=== PATIENT | female | born 1955 | race Caucasian/White ===

== ENCOUNTER 2018-03-16 20:16 | Inpatient (IN) | payer OTHER ==
[~2018-03-16] VITALS: Ht 167.6 cm; Wt 66.4 kg
--- NOTE | ~2018-03-16 | D ---
[facility] [place] [address] DISCHARGE SUMMARY Name: RAUL MCCRACKEN Room #: 455-P [facility] IN M.R.#: [id number] Admission: 03/16/18 Attend Phys: Argenis Coronel Discharge: 03/18/18 Date of : 59 Report #: [id number] THIS REPORT FOR: //name// CC: Jaquan Mayberry DATE OF SERVICE: 03/18/2018 FINAL DIAGNOSES: 1. Right proximal humerus fracture. 2. Right distal femur fracture. 3. Right proximal tibia-fibula fracture. 4. End-stage renal disease. 5. Acute blood loss anemia. 6. Hypertension. 7. Morbid obesity. 8. Anemia of chronic kidney disease. 9. Cerebrovascular disease with late effect aphasia. 10. Chronic right hemiplegia. 11. Atrial fibrillation. 12. History of breast cancer. HOSPITAL COURSE: The patient was admitted from her [facility] facility through the ER after she sustained an injury from accidentally being dropped as her was using the Whitley lift to try to transfer her out of bed. She had various fractures as documented through x-ray including the right humerus, right distal femur and right proximal tib-fib. Orthopedics assessed her and treated these conservatively with a right shoulder immobilizer and a hinged right knee brace locked in flexion. She has a longstanding contracture of the right leg related to prior stroke and therefore a straight leg knee immobilizer was not an option. There is no surgical plan. She received hemodialysis and blood transfusion of 2 units. Her hemoglobin came up to about 6.8. Plavix and aspirin were held and then eventually aspirin will be continued. She had no other interval complications. On the day of discharge, she was asleep in bed, in no distress. She had stable vital signs. Blood sugars were in the 100s to low 200s. Lungs were clear. Heart was regular. Abdomen soft, normoactive bowel sounds. Extremities: 1+ edema. There is significant ecchymoses in the right upper arm and flex contracture of the right hip and knee. DISPOSITION: She will be transferred to [facility] facility under the care of Dr. Justus Mayberry. She will diet of diabetic and renal. Bed rest with right shoulder immobilizer and right hinged knee brace. Follow up x-rays in 2-[address] [address] DISCHARGE SUMMARY Name: RAUL MCCRACKEN GELA Room #: 455-P [facility] IN M.R.#: [id number] Admission: 03/16/18 Attend Phys: Argenis Coronel Discharge: 03/18/18 Date of : 59 Report #: [id number] weeks. She will need bedside hemodialysis with followup lab. I have signed her transfer medication list. <ELECTRONICALLY SIGNED> By: Urban Go MD 03/18/18 1150 [id number] [id number] Urban Go MD /fabio
--- NOTE | ~2018-03-16 | EKG ---
[address] [place] [address] ELECTROCARDIOGRAM REPORT Name: RAUL MCCRACKEN Room #: 455-P ADM IN M.R.#: [id number] Admission: 03/16/18 Attend Phys: Argenis Coronel Discharge: Date of : 59 Report #: [id number] THIS REPORT FOR: //name// [facility] ED Test Date: 2018-03-16 Test Time: 20:44:58 Pat Name: RAUL MCCRACKEN Department: Room: Gender: F [employer] Analyst: GABE : 1955 Requested By: Jovan Carrasquillo Order Number: [id number] MD: Chandana Tello Measurements Intervals [place] Rate: 83 P: WI: QRS: -44 QRSD: 149 T: 15 QT: 391 QTc: 460 Interpretive Statements Atrial fibrillation RBBB and LAFB Compared to ECG 05/22/2016 07:32:20 No significant change was found Electronically Signed On 03-17-2018 8:11:16 CDT by Chandana Tello [email or web address] <ELECTRONICALLY SIGNED> By: Chandana Tello MD, [facility] 03/17/18 0811 43 Chandana Tello MD, [facility] /EPI
--- NOTE | ~2018-03-16 | H ---
[facility] [place] [address] HISTORY AND PHYSICAL Name: RAUL MCCRACKEN Room #: 455-P ADM IN M.R.#: [id number] Admission: 03/16/18 Attend Phys: Argenis Coronel Discharge: Date of : 59 Report #: [id number] THIS REPORT FOR: //name// CC: Jaquan Mayberry DATE OF SERVICE: 03/17/2018 CHIEF COMPLAINT: Right arm pain. HISTORY OF PRESENT ILLNESS: The patient is a 63-year-old female who was admitted through the Emergency Room from [facility] facility with pain in the right arm and leg. The report was that her was trying to get her up, using a Whitley lift when she fell to the ground on to her right side. X-rays were obtained, which reports came back revealing fractures. She was sent to the Emergency Room and repeat x-rays have revealed an acute fracture of the right humeral neck and acute fracture of the right proximal tibia and fibula. She has a history of right hemiparesis due to a prior stroke along with end-stage renal disease for which she attends outpatient hemodialysis. PAST MEDICAL HISTORY: Cerebrovascular accident with chronic right hemiplegia. She also has aphasia, morbid obesity, hypertension, diabetes type 2. She has had a previous gastric bypass. Report of chronic atrial fibrillation with an ablation and cardioversion in 2000, history of pneumonia, end-stage renal disease and on dialysis, anemia of chronic disease. PAST SURGICAL HISTORY: As above. FAMILY HISTORY: Noncontributory. SOCIAL HISTORY: She has been living at [facility] facility for a number of years since her stroke in 2010. No known chronic alcohol or tobacco use. ALLERGIES: PENICILLIN, SULFA and CONTRAST DYE. MEDICATIONS: Tylenol, Levemir, clonidine, nifedipine, Renvela, Sensipar, Procrit, hydrocodone, aspirin, Plavix, Pepcid, eye drops, Keppra. REVIEW OF SYSTEMS: She is unable to give review. OBJECTIVE: VITAL SIGNS: Temperature 36.3, pulse 81, respirations 20, blood pressure 182/57, O2 sat 96% on room air. GENERAL: She was awake and alert, lying in bed, in no distress. HEAD AND NECK: Unremarkable. LUNGS: Clear. HEART: Regular. [address] [address] HISTORY AND PHYSICAL Name: RAUL MCCRACKEN Room #: [address] [place] [address] IN M.R.#: [id number] Admission: 03/16/18 Attend Phys: Argenis Coronel Discharge: Date of : 59 Report #: [id number] ABDOMEN: Obese, soft, normoactive bowel sounds. EXTREMITIES: There is significant ecchymoses in the right upper arm. Some bruising around the right knee. NEUROLOGIC: She is able to somewhat nod yes or no to questions, but no speech. She is alert. LABORATORY DATA REVIEW: Calcium was noted to be 11.7, sodium of 126. Hemoglobin 5.5. IMAGING: X-rays revealed impacted fracture of the right distal femur, proximal tibia and proximal fibula on the right; also fracture of the right proximal humerus. ASSESSMENT: 1. Multiple fractures. 2. Acute blood loss [id number] of chronic disease. 3. End-stage renal disease. 4. Cerebrovascular disease. 5. Late effect stroke with chronic right hemiparesis. 6. Hypertension. 7. Diabetes type 2. 8. Morbid obesity. 9. Hypercalcemia. PLAN: She is admitted for medical stabilization and initial transfusion. I suspect there may be some bleeding into the fracture site, especially the arm given the amount of ecchymoses. The Orthopedic Services assessed her and it appears that conservative treatment with hinged brace is to the knee and sling or immobilizer to the right arm. Dr. Rey has assessed her too for dialysis and transfusion needs. Once stabilized medically, then she will return to the [facility] facility for bedside hemodialysis as in her current condition, she could not attend outpatient dialysis. <ELECTRONICALLY SIGNED> By: Urban Go MD 03/17/18 1122 0950 1039 Urban Go MD /nt
--- NOTE | ~2018-03-16 | HC ---
[facility] [place] [address] CONSULTATION Name: RAUL MCCRACKEN Room #: 455-P [facility] IN M.R.#: [id number] Admission: 03/16/18 Attend Phys: Argenis Coronel Discharge: 03/18/18 Date of : 59 Report #: [id number] THIS REPORT FOR: //name// CC: Jaquan Mayberry DATE OF SERVICE: 03/17/2018 REASON FOR PRESENTATION: Post-fall. REASON FOR CONSULTATION: End-stage renal disease. HISTORY OF PRESENT ILLNESS: The patient is not able to provide me with the details of the history. She has a long-term aphasia secondary to a stroke. She is a dialysis patient who was brought from her facility during a transfer into bed with a bed lift assisted by her . She fell on the right side. This was complicated by right humeral neck fracture along with right proximal tibia and fibula fracture. She is known to have end-stage renal disease and maintained on dialysis. She is also known to have diabetes mellitus, hepatitis C, seizure disorder, breast cancer. She is not able to provide me with the details of her history as I have stated. PAST MEDICAL HISTORY: Very complicated and obtained from the medical charts. 1. End-stage renal disease, maintained on dialysis every Saturday, Saturday and Saturday. 2. Stroke, complicated by right hemiplegia and aphasia. 3. AFib. 4. Diabetes mellitus. 5. Breast cancer. 6. Hypertension. 7. Seizure disorder. 8. COPD. 9. Gastric bypass surgery. 10. Right mastectomy. ALLERGIES: AMPICILLIN, PENICILLIN, AND SULFA. SOCIAL HISTORY: She resides in a nursing facility. No drug or alcohol abuse reported. MEDICATIONS: On presentation, listed medications include hydralazine, rifampin, vancomycin, clonidine, nifedipine, Sensipar, EPO, aspirin, Plavix, calcium acetate, pantoprazole. REVIEW OF SYSTEMS: Unobtainable given the patient's mental status and aphasia. FAMILY HISTORY: Unobtainable given the patient's mental status and aphasia. [facility] [address] [place] [address] CONSULTATION Name: RAUL MCCRACKEN GELA Room #: 455-P [facility] IN M.R.#: [id number] Admission: 03/16/18 Attend Phys: Argenis Coronel Discharge: 03/18/18 Date of : 59 Report #: [id number] PHYSICAL EXAMINATION: GENERAL: She seems to be in pain. She has significant bruising of the right shoulder area with deformity. VITAL SIGNS: Blood pressure is 182/57. CHEST: No crackles. CARDIOVASCULAR: Regular with no rub. ABDOMEN: Soft, nontender. LOWER EXTREMITIES: Significant tenderness over the right lower extremity. LABORATORY DATA: Laboratory values reviewed. Hemoglobin 5.5, platelets 76. Sodium 126, potassium 5.4, BUN 50, creatinine 8.5, calcium is 11.7. IMAGING: Chest x-ray reviewed. No evidence of pulmonary edema. Tibia, fibula, and pelvic x-ray reviewed. Humerus x-ray reviewed. She has distal femoral and proximal tibial fracture on the right side. She also has comminuted and displaced fracture of the right humeral neck. ASSESSMENT, IMPRESSION, PLAN: 1. End-stage renal disease. 2. Stroke with aphasia. 3. Status post fall with multiple fractures involving the right humeral area, right distal femur and right proximal tibia. 4. We will aim for the usual dialysis treatment every Saturday, Saturday and Saturday. 5. Significantly anemic and this needs to be investigated. 6. Significant bruising on the right upper extremity while on the Plavix. She might have blood around the area. 7. Resume blood pressure medications. 8. Watch blood sugar. 9. Orthopedic consultation. 10. Extremely ill and needs to be closely watched. 11. Hold anticoagulation. 12. We will continue to follow along. <ELECTRONICALLY SIGNED> By: Marta Rey MD 03/19/18 0817 0921 [id number] Marta Rey MD /nt
[~2018-03-16 20:16] MED LIST: ACCUNEB SO1.25 MG/1 INH; AFEDITAB CR60 M1 PO; AMLODIPINE BESYL5 MG PO; APAP500 PO; APAP650 PT; ASPIRIN EC325 M1 PT; CALCIUM ACETAT667 M2 PO; CARDIZEM; CARDIZEM SR 60M60 MG GT; CLONIDINE0.1 PO; COLACE100 MG PT; CRESTOR20 MG PO; DESENEX85 GM TP; DIFLUCAN100 MG PO; DUONEB 2.5-0.5 M3 ML INH; GLYCOLAX POWDER17 G1 PO; HEPARIN 1,100 UNIT/1 IV; HUMALOG100 UNIT/1 SUBQ; HYDRALAZINE 2525 MG PO; HYDROCODON-ACE1 EAC5 PO; HYDROCODON-ACE1 EAC7 PT; HYDROCODON-ACE1 EAC8 PO; HYDROXYZINE; HYDROXYZINE HCL25 M1 PO; KEPPRA 500 MG500 M1 PO; LANTUS SC; LANTUS100 UNIT/M SUBQ; LASIX 40 MG TAB40 M2 PO; LEVEMIR SUBQ; LIPITOR10 MG PO; LISINOPRIL; LISINOPRIL10 MG PO; LORTAB; LOTRISONE CREAM15 GM TOP; LOTRISONE CREAM15 GM TP; LOVENOX SC; METFORMIN; MICONAZOLE5 GM TOP; NEPHROCAPS SOFT1 CAP PO; NORVASC5 MG PO; NOVOLOG100 UNIT/1 SUBQ; ONDANSETRON HCL4 M2 IV; PEPCID AC20 M1 PT; PROAIR HFA8.5 GM INH; PROTONIX40 M1 PO; PROVENTIL HFA6.7 G1 INH; RENAL CAPS SOFTG1 MG PO; RENVELA800 MG PO; RIFADIN300 MG PO; SENSIPAR 30 MG30 M1 PO; SIMVASTATIN20 MG PO; TOPROL XL50 MG PO; VANCOMYCIN HCL 11 G2 IVPB; VANCOMYCIN100 MG/ML PO; ZESTRIL5 MG PT; ZOFRAN4 MG IV; ZYVOX600 MG PT
[2018-03-16 20:18] VITALS: BP 110/50
[2018-03-16] MEDS ORDERED: PROCRIT10000 UNIT IV (20:30)
[2018-03-16] MEDS ORDERED: NORCO 10-325 T1 EACH PO (20:35)
[2018-03-16] MEDS ORDERED: ASPIRIN325 PO (20:37)
[2018-03-16] MEDS ORDERED: ASPIR 8181 MG PO (20:37)
[2018-03-16] MEDS ORDERED: PLAVIX 75 MG TA75 M1 PO (20:39)
[2018-03-16] MEDS ORDERED: FAMOTIDINE 20 M20 MG PO (20:39)
[2018-03-16] MEDS ORDERED: FLONASE 0.05%50 MCG NASAL (20:41)
[2018-03-16] MEDS ORDERED: [UNRECOGNIZED DRUG - CODE] IV (20:43)
[2018-03-16 20:44] LABS: BASOPHILS 0.4 % (0.0-2.0); MONOCYTES 8.4 % (1.0-8.0); RDW 15.6 % (10.5-14.5)
[2018-03-16] MEDS ORDERED: SENSIPAR60 MG PO (20:44)
[2018-03-16] MEDS ORDERED: RENAL CAPS SOFTG1 MG PO (20:44)
[2018-03-16 20:46] LABS: ABSOLUTE NEUTROPHILS 9.6 thou/uL (1.4-8.2); EOSINOPHILS 0.2 % (0.0-3.0); LYMPHOCYTES 7.9 % (24.0-44.0); MCH 33.5 pg (26.0-34.0); MCHC 32.5 g/dL (28.0-37.0); MCV 103.1 fL (80.0-100.0); POLYS 83.1 % (36.0-66.0); RBC 1.66 mil/uL (4.20-5.00); WBC 11.5 thou/uL (4.0-11.0)
[2018-03-16 20:47] LABS: CALCIUM 11.7 mg/dL (8.5-10.1); CREATININE 8.5 mg/dL (0.6-1.0); POTASSIUM 5.4 mmol/L (3.5-5.1)
[2018-03-16] MEDS ORDERED: TRAVATAN Z2.5 ML OPHTHALMIC (20:48)
[2018-03-16 20:50] LABS: HEMATOCRIT 17.1 % (37.0-47.0); HEMOGLOBIN 5.5 gm/dL (12.0-15.0)
[2018-03-16 21:02] LABS: ALBUMIN 3.6 g/dL (3.4-5.0); MAGNESIUM 3.1 mg/dL (1.8-2.4); TOTAL PROTEIN 6.4 g/dL (6.4-8.2)
[2018-03-16 21:19] LABS: PLATELET COUNT 76 thou/uL (150-400)
[2018-03-16 22:04] LABS: APTT 24.9 Seconds (24.5-32.8); INR 1.1
[2018-03-16 23:40] VITALS: BP 147/58
[2018-03-17 00:11] VITALS: BP 182/57
[2018-03-17] MEDS ORDERED: TYLENOL325 MG PO ×2 (00:48→01:03)
[2018-03-17] MEDS ORDERED: PROAIR HFA8.5 GM INH (00:54)
[2018-03-17 01:11] VITALS: BP 152/66; BP 167/58
[2018-03-17 05:50] VITALS: BP 153/98; BP 163/72; BP 167/58
[2018-03-17 13:54] LABS: HEMOGLOBIN 6.7 gm/dL (12.0-15.0)
[2018-03-18 04:39] VITALS: BP 161/97
[2018-03-18 06:04] LABS: HEMATOCRIT 20.2 % (37.0-47.0); HEMOGLOBIN 6.8 gm/dL (12.0-15.0)
[2018-03-18 07:12] LABS: HEP B SURFACE Ab(ANTI-HBS Reactive (()); HEPATITIS B SURFACE AG Negative (Negative)
[2018-03-18 07:45] VITALS: BP 156/56
== END 2018-03-18 11:21 | DRG 562 ==
LOC: ER 20:16 → 4W 21:40 → EROBS 21:40 → 4W 23:42
PROVIDERS: Emergency Medicine; Hospitalist; Internal Medicine Geriatric Medicine
DX: S82.191A Other fracture of upper end of right tibia, initial encounter for closed fracture (principal); N18.6 End stage renal disease; S42.351A Displaced comminuted fracture of shaft of humerus, right arm, initial encounter for closed fracture; D62 Acute posthemorrhagic anemia; I12.0 Hypertensive chronic kidney disease with stage 5 chronic kidney disease or end stage renal disease; R47.01 Aphasia; E66.01 Morbid (severe) obesity due to excess calories; D63.1 Anemia in chronic kidney disease; I48.2 Chronic atrial fibrillation; S82.491A Other fracture of shaft of right fibula, initial encounter for closed fracture; W18.30XA Fall on same level, unspecified, initial encounter; X58.XXXA Exposure to other specified factors, initial encounter; E11.22 Type 2 diabetes mellitus with diabetic chronic kidney disease; Y92.89 Other specified places as the place of occurrence of the external cause; Y99.8 Other external cause status; S72.401G Unspecified fracture of lower end of right femur, subsequent encounter for closed fracture with delayed healing; Z68.23 Body mass index [BMI] 23.0-23.9, adult; Y93.89 Activity, other specified; Z86.73 Personal history of transient ischemic attack (TIA), and cerebral infarction without residual deficits; Z90.710 Acquired absence of both cervix and uterus; Z88.1 Allergy status to other antibiotic agents; Z88.0 Allergy status to penicillin; Z88.2 Allergy status to sulfonamides; Z79.4 Long term (current) use of insulin; Z79.1 Long term (current) use of non-steroidal anti-inflammatories (NSAID); Z79.899 Other long term (current) drug therapy; Z85.3 Personal history of malignant neoplasm of breast
CPT/HCPCS: 10045; 32100